=== PATIENT | male | born 1955 | race Caucasian/White ===

== ENCOUNTER 2016-08-03 16:57 | Inpatient (IN) ==
[2016-08-03] MEDS ORDERED: DILTIAZEM 50 MG/10 ML VIAL IV STA (17:49)
[2016-08-03] MEDS ORDERED: SODIUM CHLORIDE 0.9% 500 ML IV STA (17:49)
--- NOTE | 2016-08-03 17:53 | EKG Report ---
Stationary ECG Study [facility] ER Test Date: 08/03/2016 5:28:39 PM Pat Name: KENDAL CLEMENS Department: Room: Gender: M Legal Practice Manager: : 1955 Requested by: Ant Noe Order Number: [id number] Reading MD: HUNG BARNES Intervals [place] Rate: 126 P: 999 WV: 0 QRS: 124 QRSD: 140 T: 54 QT: 339 QTc: 414 Interpretive Statements ATRIAL FIBRILLATION WITH RAPID VENTRICULAR RESPONSE NONSPECIFIC INTRAVENTRICULAR CONDUCTION BLOCK POSSIBLE RIGHT VENTRICULAR HYPERTROPHY Electronically Signed On 08-03-16 22:00:55 CDT by HUNG BARNES [id number]
[2016-08-03] MEDS ORDERED: DILTIAZEM 50 MG/10 ML VIAL IV ONE (18:08)
[2016-08-03 18:14] LABS: Basophils # 0.1 10*3/uL (0.0-0.2); Basophils % 0.7 % (0.0-0.8); Eosinophils # 1.5 10*3/uL (0.0-0.87); Eosinophils % 9.5 % (0.00-10.9); Hematocrit 37.1 VOL% (42.0-52.0); Hemoglobin 12.2 GM/DL (14.0-18.0); Immature Granulocytes % 0.3 %; Immature Granulocytes Absolute 0.05 #; Lymphocytes # 2.1 10*3/uL (1.4-4.0); Lymphocytes % 13.6 % (21.2-54.2); Mean Corpuscular HGB Conc 32.9 GM/DL (32-36); Mean Corpuscular Hemoglobin 28 PG (27-34); Mean Corpuscular Volume 84.9 FL (87-102); Mean Platelet Volume 10.6 FL (9.6-12.0); Monocytes # 1.6 10*3/uL (0.11-0.8); Monocytes % 10.6 % (1.7-12.7); Neutrophils # 9.9 10*3/uL (1.4-7.4); Neutrophils % 65.3 % (38.7-73.9); Platelet Count 284 T/CUMM (130-400); Red Blood Count 4.37 MC/CUMM (3.8-5.5); Red Cell Distribution Width 15.2 % (9.3-17.3); White Blood Count 15.2 T/CUMM (4-12)
[2016-08-03 18:23] LABS: Apearance,Urine Slightly Hazy (Clear); Bilirubin,Urine Negative (Negative); Blood, Urine Large mg/dL (Negative); Glucose,Urine (UA) Negative (Negative); Ketones,Urine Negative (Negative); Mucus,Urine Occasional /LPF (Occasional); Nitrite,Urine Negative (Negative); Protein,Urine 100 MG/DL; RBC,Urine 1988 /HPF (0-4); Urine Color Red (Yellow); Urine Specific Gravity 1.008 (1.001-1.035); Urine Urobilinogen < 2.0 EU/DL (0.2-1.0); WBC,Urine 38 /HPF (0-6)
--- NOTE | 2016-08-03 18:34 | Emergency Department Note ---
Mathew Miller Mantricia, am scribing for, and in the presence of, Ant Smith MD 17:58. Luis Miller Charles R, MD, personally performed the services described in this documentation, ascribed by Kwan Carmona in my presence, and it is both accurate and complete 834 . Arrival - Arrival Chief Complaint: Urogenital - Male Stated Complaint: blood in urine ED Nursing Triage Note: hematuria onset this am - pt denies any pain with urination - pt states that he was called per MD and told that his blood was too thin to stop taking coumadin until he is seen again on August 09 - pt had bypass and valve replacement June 30 Mode of Arrival: Ambulatory Limitations: No Limitations Source: Patient Time Seen by Provider: 08/03/16 17:44 - History of Present Illness HPI Narrative: Pt is a 60 y/o white male arriving to ED with c/o hematuria that onset this morning. Pt states that he was taken off of Warfarin because his PCP called him due his test results showed a value of 10 and that his blood was too thin. Pt had a bypass and valve replacement on June 30. At time of exam, pt's heart rate is 130. Pt reports no other complaints to ED. Onset (ago): hour(s) Consistency: constant Severity: mild Allergies/Adverse Reactions: Allergies Allergy/AdvReac Type Severity Reaction Status Date / Time No Known Allergies Allergy Verified 06/29/16 11:08 Home Medications: Home Medications Medication Instructions Recorded Confirmed Type Aspirin [Aspirin EC] 81 mg PO DAILY 06/29/16 06/29/16 History Carvedilol 3.125 mg PO BID 06/29/16 06/29/16 History Omeprazole 20 mg PO DAILY 06/29/16 06/29/16 History dilTIAZem HCl [Diltiazem HCl] 120 mg PO DAILY 06/29/16 06/29/16 History Amiodarone Tab [Cordarone Tab] 200 mg PO BID #60 tablet 07/05/16 Rx Furosemide 40 mg PO DAILY #30 07/05/16 06/29/16 Rx Potassium Chloride Cap/Tab [K Dur] 20 meq PO DAILY #30 tablet 07/05/16 Rx Warfarin [Coumadin] 7.5 mg PO DAILY@1800 05/24/17 05/24/17 History Review of System - Review of System 12 point system: reviewed and no additional remarkable complaints except as stated - Review of System Constitutional: Absent: chills, diaphoresis, fever Eyes: Absent: discharge, pain Head/Ears/Nose/Throat: Absent: earache, epistaxis Respiratory: Absent: cough, respiratory distress, wheezing Cardiovascular: Absent: chest pain, palpitations Gastrointestinal: Absent: abdominal pain, nausea, vomiting, diarrhea Genitourinary male: Present: hematuria. Absent: urgency, dysuria, frequency Musculoskeletal: Absent: arm pain, back pain, leg pain, neck pain Skin: Absent: rash, lesions Neurological: Absent: headache, weakness Psychiatric: Absent: anxiety, depression Medical,Surgical,& Family Hx - Medical History Cardio: History of: Cardiac Dysrhythmia (A fib), CHF, CAD, Hypertension, Valvular Heart Disease, Cardiovascular Problems (valve and bypass surgery) Gastrointestinal: History of: GI Problems (cramps. diarrhea, constipation) - Surgical History Cardiac Surgeries: Sugical HX of: Cardiac Catheterization (at [place]) - Family History Family History: Reports;: Family Diabetes, Family Heart Disease, Family Hypertension - Social History Smoking Status: Former smoker Frequency of Alcohol Use: None Type of Drug Use: None Exam Vital Signs: Vital Signs Temperature 98.2 F 08/03/16 18:05 Pulse Rate 105 H 08/03/16 18:30 Respiratory Rate 22 08/03/16 18:30 Blood Pressure 152/96 08/03/16 18:30 O2 Sat by Pulse Oximetry 99 08/03/16 18:30 - General General appearance: alert, in no apparent distress - Head Head exam: Present: atraumatic, normocephalic, normal inspection - Eye Eye exam: Present: normal appearance, PERRL, EOMI - ENT ENT exam: Present: normal exam, normal oropharynx, mucous membranes moist, TM's normal bilaterally, normal external ear exam - Neck Neck exam: Present: normal inspection, full ROM, trachea midline. Absent: tenderness - Chest Chest inspection: Present: normal inspection, symmetric chest wall rise, other ( Afib). 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 Absent: distention, tenderness, guarding, rebound - exam: Present: other (hematuria) - Extremities Exam Extremities exam: Present: normal inspection, full ROM, tenderness, normal capillary refill. Absent: pedal edema - Back Exam Back exam: Present: normal inspection, full ROM. Absent: tenderness - Neurological Exam Neurological exam: Present: alert, oriented X3, CN II-XII intact, normal gait - Psychiatric Psychiatric exam: Present: normal affect, normal mood - Skin Skin exam: Present: warm, dry, intact, normal color Course - Consultations Consultation #1: Hospitalist will admit patient Time: 18:43 Results - Labs CBC & BMP: 08/03/16 17:56 Lab Results: I have reviewed the patients labs Critical Care Time Critical Care Time: Yes Total Critical Care Time: 60 Disposition Clinical Impression: Paroxysmal atrial fibrillation with rapid ventricular response, Hematuria, Coumadin toxicity, S/P CABG (coronary artery bypass graft), S/P MVR (mitral valve replacement) Case discussed with: patient Disposition: Still a Patient Condition: Stable Time of Disposition: 18:45
[2016-08-03 18:36] LABS: PT Patient Result 123.4 SECS
[2016-08-03 18:37] LABS: INR 10.1
[2016-08-03] MEDS ORDERED: ONDANSETRON 4 MG/2 ML VIAL IV PRN (18:51)
[2016-08-03] MEDS ORDERED: ACETAMINOPHEN 325 MG TABLET PO PRN (18:51)
--- NOTE | 2016-08-03 18:57 | XRay Report ---
XR chest 1V Indication: Atrial fibrillation Comparison: Chest x-ray 07/05/2016 Technique: Portable AP chest was performed. Findings: Previously demonstrated bilateral pleural effusions have improved. The heart size remains minimally enlarged. Sternal wires and valve prosthesis appears stable. Central vascular prominence suggesting mild volume overload or vascular congestive change is noted. Minimal reticular interstitial opacities additionally present. Impression: 1. Pulmonary venous congestive changes and mild reticulation of the interstitium suggesting mild interstitial edema is noted. 08/03/2016 6:42 PM PROCEDURE INTERPRETED AT [facility] DEPARTMENT OF RADIOLOGY Final Report Signed by: Dr. Jean-Claude Barnard
[2016-08-03] MEDS ORDERED: PHYTONADIONE 5 MG TABLET PO ONE (18:59)
--- NOTE | 2016-08-03 19:06 | Hospitalist History & Physical ---
Assessment and Plan (1) S/P MVR (mitral valve replacement) Status: Acute Current Visit: Yes (2) S/P CABG (coronary artery bypass graft) Status: Acute Current Visit: Yes (3) Atrial fibrillation Status: Acute Current Visit: No (4) Hematuria Status: Acute Current Visit: Yes (5) Coumadin toxicity Status: Acute Assessment and plan: We will admit patient our service. Patient will be admitted to a telemetry bed. He is showing signs of bleeding with his hematuria. Going to give him a 5 mg dose of vitamin K and continue to watch his INR level. I wrote a message caregiver to please confirm all home medications and I will restart those except for the Coumadin once they are known. Patient's heart rate looks like his jumps around and and he has a history of A. fib. He might need to be given some doses of Cardizem or put on a Cardizem infusion. Maybe this will resolve once his home medications are all restarted Current Visit: Yes History of Present Illness Chief complaint: Hematuria History of present illness: Mr. Param Espinosa is a 60 year old male with recent surgery for valve replacement and bypass who is on Coumadin therapy presents to our hospital with hematuria. Patient received a call this morning from Dr. Hartman's office saying to hold his Coumadin. Apparently he had labs drawn a couple of days ago. He started noticing that his urine was changing colors. Patient came to our ER for further evaluation patient was found to have a INR of 10 I was consulted to admit him Home Medications Medication Instructions Recorded Confirmed Type Aspirin [Aspirin EC] 81 mg PO DAILY 06/29/16 06/29/16 History Carvedilol 3.125 mg PO BID 06/29/16 06/29/16 History Omeprazole 20 mg PO DAILY 06/29/16 06/29/16 History dilTIAZem HCl [Diltiazem HCl] 120 mg PO DAILY 06/29/16 06/29/16 History Dicyclomine HCl 10 mg PO TID PRN 08/03/16 08/03/16 History Furosemide 40 mg PO DAILY PRN 08/03/16 08/03/16 History Potassium Chloride Cap/Tab [K Dur] 20 meq PO DAILY PRN 08/03/16 08/03/16 History Warfarin [Coumadin] 7.5 mg PO DAILY@1800 08/03/16 08/03/16 History Allergies Allergy/AdvReac Type Severity Reaction Status Date / Time No Known Allergies Allergy Verified 06/29/16 11:08 Medical,Surgical,& Family Hx - Medical History Cardio: History of: Cardiac Dysrhythmia (A fib), CHF, CAD, Hypertension, Valvular Heart Disease, Cardiovascular Problems (valve and bypass surgery) Gastrointestinal: History of: GI Problems (cramps. diarrhea, constipation) - Surgical History Cardiac Surgeries: Sugical HX of: Cardiac Catheterization (at [place]) - Family History Family History: Reports;: Family Diabetes, Family Heart Disease, Family Hypertension - Social History Smoking Status: Former smoker Frequency of Alcohol Use: None Type of Drug Use: None 12 point system: reviewed and no additional remarkable complaints except as stated Exam - Constitutional Vitals: Period Temp Pulse Resp BP Sys/Epstein Pulse Ox Last 24 Hr 98.2 F-98.2 F 105-127 15-22 138-152/96-111 98-99 General appearance: normal weight - Head Head exam: Present: normal inspection - Eye Eye exam: Present: EOMI Pupils: Present: [place] - ENT ENT exam: Present: normal exam - Neck Neck exam: Present: normal inspection - Respiratory Respiratory exam: Present: clear to auscultation bilaterally - Cardiovascular Cardiovascular exam: Present: tachycardia - GI/Abdominal GI/Abdominal exam: Present: normal bowel sounds - Extremities Exam Extremities exam: Present: normal inspection - Back Exam Back exam: Present: normal inspection - Psychiatric Psychiatric exam: Present: normal affect, normal mood - Skin Skin exam: Present: normal color Results - Labs CBC & BMP: 08/03/16 17:56
[2016-08-03 19:35] LABS: Albumin 3.9 G/DL (3.4-5.0); Bilirubin,Total 0.4 MG/DL (0.2-1.0); Calcium 8.6 MG/DL (8.5-10.1); Magnesium 2.2 MG/DL (1.8-2.4); Osmolality,Calculated 276.8 MOS/KG (273-304); Potassium 4.3 MMOL/L (3.5-5.1); Total Protein 7.3 G/DL (6.4-8.3)
[2016-08-03] MEDS ORDERED: DICYCLOMINE 10 MG CAPSULE PO PRN (20:59)
[2016-08-03] MEDS ORDERED: POTASSIUM CHLORIDE 20 MEQ TABLET PO PRN (20:59)
[2016-08-03] MEDS: CARVEDILOL 3.125 MG TABLET PO SCH (22:32)
[2016-08-03] MEDS: FUROSEMIDE 20 MG TABLET PO SCH (22:34)
[2016-08-04 06:47] LABS: Basophils # 0.1 10*3/uL (0.0-0.2); Basophils % 0.8 % (0.0-0.8); Eosinophils # 1.3 10*3/uL (0.0-0.87); Hematocrit 36.2 VOL% (42.0-52.0); Hemoglobin 11.6 GM/DL (14.0-18.0); Immature Granulocytes % 0.3 %; Immature Granulocytes Absolute 0.03 #; Lymphocytes # 1.4 10*3/uL (1.4-4.0); Lymphocytes % 13.1 % (21.2-54.2); Mean Corpuscular Hemoglobin 28 PG (27-34); Mean Platelet Volume 10.9 FL (9.6-12.0); Monocytes # 1.5 10*3/uL (0.11-0.8); Monocytes % 13.8 % (1.7-12.7); Neutrophils # 6.4 10*3/uL (1.4-7.4); Platelet Count 255 T/CUMM (130-400); Red Blood Count 4.21 MC/CUMM (3.8-5.5); Red Cell Distribution Width 15.2 % (9.3-17.3); White Blood Count 10.7 T/CUMM (4-12)
[2016-08-04 07:04] LABS: PT Patient Result 101.5 SECS
[2016-08-04 07:05] LABS: INR 8.4
[2016-08-04 07:28] LABS: Eosinophils 7 % (0-10); Lymphocytes 5 % (20-55); Segmented Neutrophils 75 % (50-85)
[2016-08-04 07:29] LABS: Hypochromasia 1+; Platelet Estimate Normal; Total Cells Counted 100
[2016-08-04 08:27] LABS: Albumin 3.6 G/DL (3.4-5.0); Bilirubin,Total 0.5 MG/DL (0.2-1.0); Osmolality,Calculated 278.4 MOS/KG (273-304); Potassium 4.5 MMOL/L (3.5-5.1); Total Protein 6.7 G/DL (6.4-8.3)
[2016-08-04] MEDS ORDERED: ASPIRIN EC 81 MG TABLET PO SCH (09:00)
[2016-08-04] MEDS ORDERED: CARVEDILOL 3.125 MG TABLET PO SCH ×3 (09:00→21:00)
[2016-08-04] MEDS ORDERED: DILTIAZEM 60 MG TABLET PO SCH (09:00)
[2016-08-04] MEDS ORDERED: PANTOPRAZOLE 40 MG TABLET PO SCH (09:00)
[2016-08-04] MEDS: CARVEDILOL 3.125 MG TABLET PO SCH ×3 (09:30→21:18)
[2016-08-04] MEDS: FUROSEMIDE 20 MG TABLET PO SCH (09:31)
[2016-08-04] MEDS ORDERED: FUROSEMIDE 40 MG TABLET PO PRN (09:32)
--- NOTE | 2016-08-04 15:38 | Hospitalist Progress Note ---
Assessment and Plan (1) Anemia Status: Acute Assessment and plan: monitor and stable Current Visit: No (2) S/P MVR (mitral valve replacement) Status: Acute Assessment and plan: hold coumadin due to elevated INR want it to be 2.5 to 3.5 Current Visit: Yes (3) S/P CABG (coronary artery bypass graft) Status: Acute Current Visit: Yes (4) Atrial fibrillation Status: Acute Assessment and plan: cont dilt and coreg, hold anticoagulation Current Visit: No (5) Hematuria Status: Acute Assessment and plan: improving Current Visit: Yes (6) Coumadin toxicity Status: Acute Assessment and plan: monitor and hold coumadin Current Visit: Yes Hospitalist: Subjective Interval history: Hematuria and urine is starting to clear. I would not reverse his INR but allow it to drift down on its own. If he looks good tomorrow I will let him go but he will have to be watched carefully. He said he feels great. I told him he could take his blood pressure medicines out of his own supply. I will hold his aspirin today due to the elevated INR. Exam - Constitutional Vitals: Period Temp Pulse Resp BP Sys/Epstein Pulse Ox Last 24 Hr 98.2 F-99.8 F 62-138 15-26 110-162/66-111 96-100 Exam: Heart Rate-[RRR] Lungs-[CTAB] GI-[+bs soft, NT] Ext-[no edema] Neuro [Motor 5/5], [alert and oriented times 3] psych [normal mood and affect] General [no acute distress] Results - Labs CBC & BMP: 08/04/16 04:00 08/04/16 07:04 Lab Results: I have reviewed the past 24 hour labs Labs: INR is 8.4, UA had 38 WBCs and almost 2000 RBCs, urine culture negative no growth - Diagnostic Findings Procedure: Chest x-ray: report reviewed by me (Mild pulmonary edema)
[2016-08-04] MEDS ORDERED: BISACODYL 5 MG TABLET PO PRN (18:16)
[2016-08-05 06:30] LABS: INR 2.5; PT Patient Result 28.6 SECS
[2016-08-05 08:22] VITALS: BP 108/68
[2016-08-05] MEDS ORDERED: Omeprazole [Omeprazole] 20 MG PO SCH ×3 (09:00)
[2016-08-05] MEDS ORDERED: FUROSEMIDE 40 MG TABLET PO SCH (09:00)
[2016-08-05] MEDS ORDERED: DILTIAZEM 120 MG PO SCH (09:00)
[2016-08-05] MEDS: CARVEDILOL 3.125 MG TABLET PO SCH (09:27)
--- NOTE | 2016-08-05 10:47 | Discharge Summary ---
<Andrew Harris - Last Filed: 08/05/16 10:21> Hospital Course - Hospital Course Hospital Course: Mr. Virgen is a 60-year-old white male patient with a history of a recent mitral valve replacement, CKD, and CAD who presented to the ED on 08/03 with complaints of hematuria that started prior to arrival. Patient reported receiving a call from Dr. Hartman stating to hold his Coumadin. In ED patient was noted to have an elevated heart rate and an INR of 10.1 the patient was admitted to the hospitalist service for further evaluation and treatment. The patient received 5 mg of vitamin K po. Coumadin and aspirin were held. Patient received diltiazem 120 mg daily as well as a beta-elham. Patient's INR trended down to 8.4 and then to 2.5 today. The hematuria has resolved. Patient is ready for discharge. Patient to take coumadin 7.5 mg po tonight and then 5 mg every night. Home health will call me the results over the weekend and I will adjust his coumadin until his doctor returns on Monday. Discharge Plan - Discharge Data Disposition: Home Health Service - Discharge Medications Continue Aspirin [Aspirin EC] 81 mg PO QAM dilTIAZem HCl [Diltiazem HCl] 120 mg PO QAM Dicyclomine HCl 10 mg PO TID PRN PRN Reason: Pain Furosemide 40 mg PO DAILY PRN PRN Reason: Edema Carvedilol 3.125 mg PO BID Omeprazole 20 mg PO QAM Potassium Chloride Cap/Tab [K Dur] 20 meq PO DAILY PRN PRN Reason: TAKE WITH LASIX Changed Warfarin [Coumadin] 5 mg PO QPM #30 tablespoon - Follow Up or Referral Follow Up: Dr. teressa [Other] - 1 Week Jorge Hartman MD [Physician] - 1 Week - Forms/Instructions Exam - Constitutional Vitals: Period Temp Pulse Resp BP Sys/Epstein Pulse Ox Last 24 Hr 98.1 F-99.4 F 62-88 18-20 108-152/60-85 95-99 Discharge Results Procedures and tests throughout hospitalization: Pending Orders 08/06/16 04:00 Prothrombin Time INR IN AM 08/07/16 04:00 Prothrombin Time INR IN AM Labs on day of discharge: Labs from last 24 hours 08/05/16 08/05/16 08/04/16 05:54 05:54 16:07 Hgb 11.8 L INR 2.5 PT Patient/Control Mix 28.6 D B-Natriuretic Peptide 418 H DS: Provider Date of admission: 08/03/16 18:51 Primary care physician: Torsten Montiel Attending physician on admission: Dontae Uriarte MD Discharging clinician: Andrew Harris NP <Esperanza Benson - Last Filed: 08/05/16 11:22> Hospital Course - Time spent with patient Time with patient DS: Greater than 30 minutes (45 min) Diagnosis - Discharge Diagnosis (1) Anemia Status: Acute (2) S/P MVR (mitral valve replacement) Status: Acute (3) S/P CABG (coronary artery bypass graft) Status: Acute (4) Atrial fibrillation Status: Acute (5) Hematuria Status: Acute (6) Coumadin toxicity Status: Acute Discharge Plan - Discharge Data Condition at Discharge: Stable Discharge Diet: heart healthy Activity: resume usual activities as tolerated Hygiene: no restrictions Weight Bearing at Discharge: full weight bearing Driving: no restrictions - Forms/Instructions Additional Discharge Instructions: daily inr called to me on Monday and Monday , then to Dr. Ortiz office on Monday Exam - Constitutional General appearance: normal weight, no acute distress - Respiratory Respiratory exam: Present: clear to auscultation bilaterally. Absent: rhonchi, wheezes - Cardiovascular Cardiovascular exam: Present: regular rate and rhythm. Absent: systolic murmur - GI/Abdominal GI/Abdominal exam: Present: normal bowel sounds, soft. Absent: tenderness - Psychiatric Psychiatric exam: Present: normal affect, normal mood
--- NOTE | 2016-08-05 10:49 | Physician Query Form ---
CLICK EDIT DOCUMENT TO SELECT QUERY ANSWER --> OK --> SIGN Maria Elena Tong RN Clinical System Designer W) [phone] (f) [phone] [email or web address] PROVIDERS: Make your selection(s) from the choices in EACH section by typing an "x" and enter comments in the comment section. Please use your independent medical judgment in providing your response. This request does not imply that any particular answer is desired or expected. CLINICAL INDICATORS: (Providers should not edit this section) Based on documentation of "Acute hematuria" "Acute coumadin toxicity" INR on admission 10.1. PO vitamin K given. Based on the above, could you clarify the appropriate diagnosis, if significant , that supports the above abnormalities and additional evaluation, monitoring, and/or treatment rendered: ( x) Treated for hemorrhagic disorder due to extrinsic circulating anticoagulants ( ) NOT treated for hemorrhagic disorder due to extrinsic circulating anticoagulants ( ) Other, please specify: ( ) Clinically unable to determine COMMENTS: PLEASE ALSO DOCUMENT RESPONSE IN PROGRESS NOTES AND/OR DISCHARGE SUMMARY Use of terms such as suspected, likely, or probable (associated with a specific diagnosis that is being evaluated, monitored, or treated as if it exists) are acceptable and can be restated in the discharge summary if not ruled out. MTDD
== END 2016-08-05 12:42 | disposition home health service (06) | DRG 813 ==
LOC: N.ED 16:57 → N.EDINP 18:51 → SUATTDRO 18:51 → N.TELEN 20:08
PROVIDERS: ADMIT Internal Medicine; ATTEND Internal Medicine